=== PATIENT | female | born 1960 | race Caucasian/White ===

== ENCOUNTER 2022-11-28 16:14 | Emergency (ER) | payer OTHER, SELFPAY ==
--- NOTE | ~2022-11-28 | XR_ITS ---
EXAMINATION: XR KNEE, RIGHT CLINICAL INFORMATION: Right knee pain COMPARISON: None available. TECHNIQUE: Four views of the right knee. FINDINGS: No significant joint effusion. Extensive tricompartmental degenerative changes with prominent osteophyte formation more so in the patellofemoral compartment and medial compartment. No acute fracture or dislocation. No bony destructive lesions. Surrounding soft tissues unremarkable. XR/XR knee RT 4V IMPRESSION: Extensive tricompartmental degenerative changes. No acute fracture or dislocation.
[2022-11-28 16:18] VITALS: BP 141/82; PULSE 76; RESP 18; TEMP 36.7; O2SAT 98; BMI 27.3
--- NOTE | 2022-11-28 16:20 | ED.GENADULT ---
HPI - General Adult General Chief complaint: Extremity Injury, Lower <DANA Daly - Last Filed: 12/11/22 11:58> Stated complaint: right knee pain <DANA Daly Last Filed: 12/11/22 11:58> Time Seen by Provider: 11/28/22 18:22 <DANA Daly Last Filed: 12/11/22 11:58> Source: patient <DANA Garcia Last Filed: 11/28/22 18:43> Mode of arrival: ambulatory <DANA Garcia Last Filed: 11/28/22 18:43> Limitations: no limitations <DANA Garcia Last Filed: 11/28/22 18:43> History of Present Illness HPI narrative: Patient is a 62 year old assigned female at with a history of arthritis presenting to the emergency department today with right knee pain. Patient states that she chased a child at school and her right knee now hurts. Patient denies falling, striking her head, or any loss of consciousness. Patient denies any dizziness, lightheadedness, abdominal pain, nausea, vomiting, fever, chills, blurry vision, double vision, loss of vision, chest pain, difficulty breathing, shortness of breath, back pain, night sweats, pain with urination, increased urinary frequency, increased urinary urgency, blood in her urine or stool, syncope or a near syncopal episode, bowel incontinence, bladder incontinence, bowel retention, bladder retention, or any other complaints at this time. <DANA Garcia Last Filed: 11/28/22 18:43> Onset (ago): hour(s) <DANA Garcia - Last Filed: 11/28/22 18:43> Location: right and lower extremity <DANA Garcia Last Filed: 11/28/22 18:43> Severity: mild <DANA Garcia Last Filed: 11/28/22 18:43> Severity scale (1-10): 4 <DANA Garcia Last Filed: 11/28/22 18:43> Quality: aching <DANA Garcia Last Filed: 11/28/22 18:43> Pain Consistency: constant <DANA Garcia Last Filed: 11/28/22 18:43> Relieving factors: immobilization <DANA Garcia - Last Filed: 11/28/22 18:43> Exacerbating factors: movement <DANA Garcia - Last Filed: 11/28/22 18:43> Associated symptoms: denies other symptoms <DANA Garcia - Last Filed: 11/28/22 18:43> Treatments prior to arrival: none <DANA Garcia - Last Filed: 11/28/22 18:43> Related Data Allergies/adverse reactions: Allergies Allergy/AdvReac Type Severity Reaction Status Date / Time No Known Allergies Allergy Verified 11/28/22 16:20 <DANA Daly - Last Filed: 12/11/22 11:58> Review of Systems Constitutional: Constitutional: Reports no additional constitutional complaints, Denies chills, Denies fever(s) and Denies night sweats <DANA Garcia Last Filed: 11/28/22 18:43> Eyes: Eyes: Reports no additional eye complaints, Denies blurry vision, Denies change in vision, Denies diplopia, Denies eye discharge, Denies loss of vision and Denies eye pain <DANA Garcia - Last Filed: 11/28/22 18:43> ENT: Denies dizziness <DANA Garcia - Last Filed: 11/28/22 18:43> Cardiovascular: Cardiovascular: Reports no additional cardiovascular complaints, Denies chest pain, Denies lightheadedness, Denies Loss of Consciousness and Denies dyspnea <DANA Garcia - Last Filed: 11/28/22 18:43> Respiratory: Respiratory: Reports no additional respiratory complaints and Denies dyspnea <DANA Garcia - Last Filed: 11/28/22 18:43> Gastrointestinal: Gastrointestinal: Reports no additional gastrointestinal complaints, Denies abdominal pain, Denies melena, Denies hematochezia, Denies change in bowel habits and Denies change in stool character <DANA Garcia - Last Filed: 11/28/22 18:43> Genitourinary: Genitourinary: Denies hematuria, Denies urinary frequency, Denies dysuria, Denies urinary incontinence, Denies urinary hesitancy and Denies urinary urgency <DANA Garcia - Last Filed: 11/28/22 18:43> Musculoskeletal: Musculoskeletal: Reports no additional musculoskeletal complaints, Denies numbness and Denies tingling <DANA Garcia - Last Filed: 11/28/22 18:43> Comments: right knee pain <DANA Garcia - Last Filed: 11/28/22 18:43> Neurologic: Denies dizziness, Denies loss of vision, Denies numbness and Denies tingling <DANA Garcia - Last Filed: 11/28/22 18:43> Psychiatric: Psychiatric: Reports no additional psychiatric complaints <DANA Garcia - Last Filed: 11/28/22 18:43> Endocrine: Endocrine: Reports no additional endocrine complaints <DANA Garcia - Last Filed: 11/28/22 18:43> Hematologic/Lymphatic: Hematologic/Lymphatic: Reports no additional hematologic/lymphatic complaints <DANA Garcia - Last Filed: 11/28/22 18:43> Allergic/Immunologic: Allergic/Immunologic: Reports no additional allergic/immunologic complaints <DANA Garcia - Last Filed: 11/28/22 18:43> [facility] Past Medical History Attestation statement: The following information was validated with the patient. <DANA Garcia - Last Filed: 11/28/22 18:43> Source: old records reviewed and nursing notes reviewed <DANA Garcia - Last Filed: 11/28/22 18:43> Physical Exam ED Vital Signs: Vital Signs - 24 hr 11/28/22 16:18 Temperature 98.1 F Pulse Rate 76 Respiratory Rate 18 Blood Pressure 141/82 H Pulse Oximetry 98 Oxygen Delivery Method Room Air BMI result Body Mass Index 27.3 <DANA Daly - Last Filed: 12/11/22 11:58> Vital Signs - 24 hr 11/28/22 16:18 Temperature 98.1 F Pulse Rate 76 Respiratory Rate 18 Blood Pressure 141/82 H Pulse Oximetry 98 Oxygen Delivery Method Room Air BMI result Body Mass Index 27.3 <DANA Garcia - Last Filed: 11/28/22 18:43> Const General: cooperative, no acute distress, alert and awake <DANA Garcia - Last Filed: 11/28/22 18:43> Nutritional Appearance: well nourished <Britt Hernandezloyd [place] - Last Filed: 11/28/22 18:43> Orientation/consciousness: patient oriented x3 <Brittayanna Hernandezloyd [facility] Last Filed: 11/28/22 18:43> Limitations: no limitations <Brittayanna eHrnandezloyd [facility] Last Filed: 11/28/22 18:43> HENMT Head: Yes normal to inspection and Yes atraumatic <Britt Hernandezloyd [place] - Last Filed: 11/28/22 18:43> Ears: hearing grossly normal bilaterally and external ears normal <Britt Hernandezloyd [place] - Last Filed: 11/28/22 18:43> General nose exam: Normal external nose present, no nasal discharge noted and no epistaxis <Brittayanna Hernandezloyd [place] - Last Filed: 11/28/22 18:43> Face and sinus: Yes normal facial exam, No abrasion and No laceration <Britt Gallardo [place] - Last Filed: 11/28/22 18:43> Mouth: Normal oral and palatal mucosa present, no drooling and no muffled voice <Britt Hernandezloyd [place] - Last Filed: 11/28/22 18:43> Eyes General: appearance normal, both eyes and all related structures <Brittayanna Hernandezloyd [place] - Last Filed: 11/28/22 18:43> Periorbital: periorbital findings normal <Britt Hernandezloyd [place] - Last Filed: 11/28/22 18:43> Eyelids: Yes eyelids normal <Britt Paulina [place] - Last Filed: 11/28/22 18:43> Conjunctivae: conjunctivae normal <Britt Hernandezloyd [place] - Last Filed: 11/28/22 18:43> Pupils: Equal, round and reactive pupils present <Britt Paulina [place] - Last Filed: 11/28/22 18:43> EOM: EOMs intact bilaterally <Britt Paulina [place] - Last Filed: 11/28/22 18:43> Neck Neck: Yes normal visual inspection, Yes full ROM and Yes no lymphadenopathy <Britt Gallardo [place] - Last Filed: 11/28/22 18:43> Chest Chest palpation & inspection: normal inspection of the chest <Britt Gallardo PA - Last Filed: 11/28/22 18:43> Resp Effort & Inspection: normal respiratory effort and able to speak in complete sentences <Britt Gallardo PA - Last Filed: 11/28/22 18:43> Auscultation: clear to auscultation bilaterally <Britt Gallardo PA - Last Filed: 11/28/22 18:43> Cardio Rate: regular rate <Britt Gallardo PA - Last Filed: 11/28/22 18:43> Rhythm: regular rhythm <Britt Gallardo PA - Last Filed: 11/28/22 18:43> GI Inspection: Yes normal to inspection <Britt Gallardo PA - Last Filed: 11/28/22 18:43> Neuro General: patient oriented x3 and moves all extremities <Britt Gallardo PA - Last Filed: 11/28/22 18:43> Cranial nerves: Yes Equal, round and reactive pupils present <Britt Gallardo PA - Last Filed: 11/28/22 18:43> Cognition (Neuro): normal cognition <Britt Gallardo PA - Last Filed: 11/28/22 18:43> Motor exam (neuro): 5/5 motor strength present throughout <Britt Gallardo PA - Last Filed: 11/28/22 18:43> Sensory Exam: Normal double simultaneous stimulation for sensation <Britt Gallardo PA - Last Filed: 11/28/22 18:43> Coordination: [id number] test normal <Britt Gallardo [place] - Last Filed: 11/28/22 18:43> Extrem Other: pain with ROM <Britt Gallardo PA - Last Filed: 11/28/22 18:43> General: Yes normal to inspection and Yes capillary refill normal <Britt Gallardo PA - Last Filed: 11/28/22 18:43> Psych Appearance: grossly normal <Britt GallardoDANA - Last Filed: 11/28/22 18:43> Mental Status: mental status grossly normal <Britt Gallardo PA - Last Filed: 11/28/22 18:43> Affect: normal affect <Britt HernandezDANA harp - Last Filed: 11/28/22 18:43> Attitude: cooperative <DANA Garcia - Last Filed: 11/28/22 18:43> Thought process: Normal thought process present <DANA Garcia Last Filed: 11/28/22 18:43> Thought content: Normal thought content present <DANA Garcia - Last Filed: 11/28/22 18:43> Insight: Good insight present (Psych) <DANA Garcia - Last Filed: 11/28/22 18:43> Course Course Course Narrative: RmE: 62-year-old female presents to ED for right knee pain. Patient states she was running after a 3-year-old child and her knee went the opposite direction. Patient denies Falling or hitting head. Patient denies redness or warmth of the knee. Right knee x-ray ordered. <DANA Daly - Last Filed: 12/11/22 11:58> Procedures Orthopedic Splinting/Casting Injury #1: Side: right <DANA Garcia - Last Filed: 11/28/22 18:43> Lower Extremity Injury Location: knee <DANA Garcia Last Filed: 11/28/22 18:43> Lower Extremity Immobilizer: knee immobilizer <DANA Garcia - Last Filed: 11/28/22 18:43> Other Orthopedic Equipment: crutches <DANA Garcia - Last Filed: 11/28/22 18:43> Medical Decision Making Medical Decision Making MDM Narrative: Patient is a 62 year old assigned female at with a history of arthritis presenting to the emergency department today with right knee pain. Patient's physical exam showed pain with right knee ROM but was otherwise unremarkable. Patient's right knee x-ray showed significant arthritis but was otherwise unremarkable. I explained my physical exam findings as well as all test results to the patient. I answered all questions asked by the patient. Patient's right knee was placed in an immobilizer and the patient was given crutches with crutch instructions. I stressed the importance of the patient taking her medication as prescribed. I stressed the importance of the patient following up with her primary care provider, an orthopedic provider, and work connection. I stressed the importance of the patient returning to the emergency department immediately if her symptoms were to worsen or if she were to develop any dizziness, shortness of breath, difficulty breathing, chest pain, blurry vision, loss of vision, nausea, vomiting, abdominal pain, fever, chills, back pain, or any other complaints. Patient verbalized agreement and understanding with this treatment plan and discharge. <DANA Garcia - Last Filed: 11/28/22 18:43> Differential Diagnosis Differential Diagnoses: The differential diagnosis associated with the presentation includes <DANA Garcia Last Filed: 11/28/22 18:43> right knee pain, right knee strain, right knee sprain, internal knee injury <DANA Garcia Last Filed: 11/28/22 18:43> Independent Interpretation I performed an independent interpretation of an: Plain X-Ray <DANA Garcia Last Filed: 11/28/22 18:43> Interpretation: My interpretation is in agreement with the radiologist's impression of this imaging study. EXAMINATION: XR KNEE, RIGHT? CLINICAL INFORMATION: Right knee pain? COMPARISON: None available.? TECHNIQUE: Four views of the right knee. FINDINGS: No significant joint effusion. Extensive tricompartmental degenerative changes with prominent osteophyte formation more so in the patellofemoral compartment and medial compartment. No acute fracture or dislocation. No bony destructive lesions. Surrounding soft tissues unremarkable.? XR/XR knee RT 4V IMPRESSION: Extensive tricompartmental degenerative changes. No acute fracture or dislocation. Dictated By: Yann Oshea MD Signed By: Electronically signed by Yann Oshea MD 11/28/22 0422 <DANA Garcia Last Filed: 11/28/22 18:43> Discharge Plan Discharge Clinical Impression: Acute knee pain, Knee sprain <DANA Daly - Last Filed: 12/11/22 11:58> Patient Disposition: Home, Self-Care <DANA Daly - Last Filed: 12/11/22 11:58> Instructions: Knee Pain (ED) <DANA Daly Last Filed: 12/11/22 11:58> Additional Instructions: Follow up with your primary care provider and an orthopedic provider. Return to the emergency department immediately if your symptoms worsen or if you develop any dizziness, shortness of breath, difficulty breathing, chest pain, blurry vision, loss of vision, nausea, vomiting, abdominal pain, fever, chills, back pain, or any other complaints. <DANA Daly Last Filed: 12/11/22 11:58> Referrals: [facility] [place] [facility] [place]] (Call to establish and follow up with a primary care provider. If you already have a primary care provider, please follow up with them.) [facility] [place] [facility] Group] (Call to establish and follow up with a primary care provider. If you already have a primary care provider, please follow up with them.) [facility] [place] [facility] Group] (Call to establish and follow up with a primary care provider. If you already have a primary care provider, please follow up with them.) [facility] [place] [facility] [Provider Group] (Call to establish and follow up with an orthopedic provider. ) [facility] [Provider Group] <DANA Daly - Last Filed: 12/11/22 11:58> Stand Alone Forms: Work/School Release <DANA Daly - Last Filed: 12/11/22 11:58> Interventions: ED Discharge Assessment Last Done: 11/28/22 19:19 <DANA Daly Last Filed: 12/11/22 11:58> Discharge Date/Time: 11/28/22 19:20 <DANA Daly Last Filed: 12/11/22 11:58> Print Language: Ukrainian <DANA Daly Last Filed: 12/11/22 11:58>
== END 2022-11-28 19:20 | disposition home or self-care (01) ==
PROVIDERS: Emergency Provider Emergency Medicine; PCP Nurse Practitioner Family
DX: S83.91XA Sprain of unspecified site of right knee, initial encounter (principal); X58.XXXA Exposure to other specified factors, initial encounter; Y93.9 Activity, unspecified; Y92.9 Unspecified place or not applicable; Y99.9 Unspecified external cause status
CPT/HCPCS: 29505; 73564; 99282; 99283

== ENCOUNTER → 2022-11-29 09:29 | Outpatient (BNVA) | payer OTHER, SELFPAY | PROVIDERS: PCP Nurse Practitioner Family; Visit Provider Internal Medicine | DX: M23.41 Loose body in knee, right knee (principal) | CPT/HCPCS: 99203 ==

== ENCOUNTER → 2022-12-09 14:13 | Outpatient (BNVA) | payer OTHER, SELFPAY | PROVIDERS: PCP Nurse Practitioner Family; Visit Provider Internal Medicine | DX: M23.91 Unspecified internal derangement of right knee (principal) | CPT/HCPCS: 99213 ==